=== PATIENT | male | born 1995 | race African-American/Black ===

== ENCOUNTER 2024-01-14 13:25 | Emergency (ER) | payer SELFPAY ==
[~2024-01-14] VITALS: Ht 170.2 cm; Wt 181.6 kg
[2024-01-14] MEDS: ALBUTEROL/IPRATROPIUM 3 ML NEB NEB ONE (14:07)
[2024-01-14] MEDS ORDERED: ALBUTEROL/IPRATROPIUM 3 ML NEB NEB ONE (14:30)
[2024-01-14] MEDS: ALBUTEROL SULF 0.083% NEB SOLN 3 ML NEB NEB STA ×2 (14:39→15:31)
[2024-01-14] MEDS: HYDRALAZINE HCL 20 MG/ML VIAL IV STA ×2 (15:29→16:55)
[2024-01-14] MEDS: METHYLPREDNISOLONE SOD SUCC 125 MG/2ML VIAL IV ONE (15:29)
[2024-01-14 15:31] VITALS: PULSE 91; RESP 26
[2024-01-14 16:55] VITALS: BP 216/89
[2024-01-14] MEDS: CLONIDINE HCL 0.2 MG TAB PO ONE (17:19)
[2024-01-14] MEDS: ACETAMINOPHEN 325 MG TAB PO ONE (17:24)
[2024-01-14 18:18] VITALS: PULSE 108; RESP 24; TEMP 99.3; O2SAT 92
== END 2024-01-14 18:50 | disposition other institution (70) ==
LOC: FSED 13:28
DX: R09.02 Hypoxemia (principal); I10 Essential (primary) hypertension; F17.200 Nicotine dependence, unspecified, uncomplicated; E66.01 Morbid (severe) obesity due to excess calories; Z68.44 Body mass index [BMI] 60.0-69.9, adult; Z11.52 Encounter for screening for COVID-19
CPT/HCPCS: 0223U; 71046; 83605; 87040; 87400; 96374; 96375; 96376; 99284; J0360; J0456; J0696; J2919; J7050